=== PATIENT | female | born 1950 | race Caucasian/White ===

== ENCOUNTER → 2020-03-20 15:05 | Outpatient (CLI) | payer OTHER, SELFPAY ==
--- NOTE | ~2020-03-20 | MM_ITS ---
EXAMINATION: MM screening link BI w yessica HISTORY: Screening TECHNIQUE: Craniocaudal and mediolateral oblique 3-D tomosynthesis images were obtained and synthetic 2-D images were generated. CAD analysis was submitted and interpreted. COMPARISON: Comparison to multiple prior studies sequentially, with oldest reviewed study dated 12/04. BREAST PARENCHYMAL COMPOSITION: There are scattered areas of fibroglandular density. FINDINGS: There is no evidence of suspicious mass, calcification, or architectural distortion to sugg est malignancy in either breast. There has been no suspicious interval change. IMPRESSION: 1. No mammographic evidence of malignancy. 2. Recommend routine screening mammography in one year. BI-RADS Category 1: Negative Reviewed, dictated and finalized at location A.
== END ==
PROVIDERS: PCP Physician Assistant; Visit Provider Physician Assistant
DX: Z12.31 Encounter for screening mammogram for malignant neoplasm of breast (principal)
CPT/HCPCS: 77063; 77067

== ENCOUNTER → 2021-05-24 11:08 | Outpatient (CLI) | payer OTHER, SELFPAY ==
--- NOTE | ~2021-05-24 | XR_ITS ---
EXAMINATION: XR lumbar spine 2-3V DATE: 05/24/2021 11:33 INDICATION: Low back pain TECHNIQUE: Anteroposterior and lateral views of the lumbar spine, and cone-down lateral view of the l umbosacral junction were obtained. COMPARISON: None. FINDINGS: There is no fracture, dislocation, or subluxation. There is severe loss of intervertebral d isc space height at L4-5 and L5-S1. The vertebral body heights are maintained. Small degenerative ost eophytes project from the anterior endplates of multiple vertebral bodies. There is moderate facet os teoarthritis of the lower lumbar spine. IMPRESSION: 1. Severe lower lumbar spondylosis without acute findings. Reviewed, dictated and finalized at location B. [employer]
== END ==
PROVIDERS: PCP Physician Assistant; Visit Provider Podiatrist Foot & Ankle Surgery
DX: M47.27 Other spondylosis with radiculopathy, lumbosacral region (principal)
CPT/HCPCS: 72100

== ENCOUNTER → 2022-01-03 13:19 | Outpatient (CLI) | payer OTHER, SELFPAY ==
--- NOTE | ~2022-01-03 | MM_ITS ---
EXAMINATION: MM screening link BI w yessica HISTORY: Screening mammogram TECHNIQUE: Craniocaudal and mediolateral oblique 3-D tomosynthesis images were obtained and synthetic 2-D images were generated. CAD analysis was submitted and interpreted. COMPARISON: 03/20/2020, 02/12/2019, 01/20/2018 bilateral screening mammogram examinations BREAST PARENCHYMAL COMPOSITION: The breasts are heterogeneously dense, which may obscure small masses . FINDINGS: Benign-appearing stable left axillary tail and upper outer quadrant lymph nodes. Benign rig ht axillary tail stable lymph node. There is no evidence of suspicious mass, calcification, or bebeto ectural distortion to suggest malignancy in either breast. There has been no suspicious interval [place] [facility]. IMPRESSION: 1. No mammographic evidence of malignancy. 2. Recommend routine screening mammography in one year. BI-RADS Category 2: Benign finding(s). Reviewed, dictated and finalized at location A.
--- NOTE | ~2022-01-03 | DEXA_ITS ---
Bone Density Report Name: LINDSEY WISE Age: 71 Sex: Female Ethnicity: White Date of : 1950 Indication: postmenopausal; screening for osteoporosis; height loss; inflammatory bowel disease; hysterectomy; Referring Provider: IVÁN, DAKOTA Study: Bone densitometry was performed. Exam Date: January 03, 2022 Accession number: [id number] Bone Density: Region BMD T-score Z-score Classification AP Spine (L1-L4) 1.156 1.0 3.1 Normal Femoral Neck (Left) 0.779 -0.6 1.2 Normal Total Hip (Left) 0.886 -0.5 1.1 Normal Femoral Neck (Right) 0.720 -1.2 0.7 Osteopenia Total Hip (Right) 0.836 -0.9 0.7 Normal Total Hip Mean 0.861 -0.7 0.9 Normal World Health Organization criteria for BMD impression classify patients as: Normal (T-score at or above -1.0), Osteopenia (T-score between -1.0 and -2.5), or Osteoporosis (T-score at or below -2.5). 10-year Fracture Risk(1): Major Osteoporotic Fracture 8.7% Hip Fracture 1.0% Reported Risk Factors: [place] (), Neck BMD=0.720, BMI=31.8 (1) FRAX(R) Version 3.08. Fracture probability calculated for an untreated patient. Fracture probability may be lower if the patient has received treatment. Previous Exams: Region Exam Age BMD T-score BMD Change BMD Change Date g/cm2 vs Baseline vs Previous AP Spine(L1-L4) 01/03/2022 71 1.156 1.0 0.044 0.021 01/20/2018 67 1.135 0.8 0.023 0.087 01/03/2009 58 1.048 0.0 -0.063 -0.063 04/11/2003 52 1.112 0.6 Total Hip(Left) 01/03/2022 71 0.886 -0.5 -0.023 0.022 01/20/2018 67 0.865 -0.6 -0.045 0.026 01/03/2009 58 0.839 -0.8 -0.071 -0.071 04/11/2003 52 0.910 -0.3 Total Hip(Right) 01/03/2022 71 0.836 -0.9 0.000 0.005 01/20/2018 67 0.831 -0.9 -0.005 0.003 01/03/2009 58 0.827 -0.9 -0.009 -0.009 04/11/2003 52 0.836 -0.9 *Denotes significance at 95% confidence level, LSC for AP Spine = 0.022 g/cm2, LSC for Total Hip = 0.027 g/cm2 Clinical Information Provided by Patient: Has used the following medications: Vitamin D Has the following medical conditions: Inflammatory bowel diseases, Hysterectomy, ULCERATIVE COLITIS Patient maximum height was 68 Menopause Age: 51 No regular weight bearing exercise Drinks caffeinated beverages Onset of menses at age 17 Number of children 2
== END ==
PROVIDERS: PCP Physician Assistant; Visit Provider Physician Assistant
DX: Z12.31 Encounter for screening mammogram for malignant neoplasm of breast (principal); Z78.0 Asymptomatic menopausal state; M85.851 Other specified disorders of bone density and structure, right thigh
CPT/HCPCS: 77063; 77067; 77080

== ENCOUNTER → 2023-01-28 15:57 | Outpatient (CLI) | payer OTHER, SELFPAY ==
--- NOTE | ~2023-01-28 | MM_ITS ---
EXAMINATION: MM screening link BI w yessica HISTORY: Screening TECHNIQUE: Craniocaudal and mediolateral oblique 3-D tomosynthesis images were obtained and synthetic 2-D images were generated. CAD analysis was submitted and interpreted. COMPARISON: Comparison to multiple prior studies sequentially, with oldest reviewed study dated 12/24 2. BREAST PARENCHYMAL COMPOSITION: The breasts are heterogeneously dense, which may obscure small masses . FINDINGS: There is no evidence of suspicious mass, calcification, or architectural distortion to sugg est malignancy in either breast. There has been no suspicious interval change. IMPRESSION: 1. No mammographic evidence of malignancy. 2. Recommend routine screening mammography in one year. BI-RADS CATEGORY 1 - NEGATIVE Reviewed, dictated and finalized at location A.
== END ==
PROVIDERS: PCP Obstetrics & Gynecology Gynecology; Visit Provider Physician Assistant
DX: Z12.31 Encounter for screening mammogram for malignant neoplasm of breast (principal)
CPT/HCPCS: 77063; 77067

== ENCOUNTER 2024-02-06 10:53 | Outpatient (CLI) | payer OTHER, SELFPAY ==
--- NOTE | ~2024-02-06 | XR_ITS ---
XR lumbar spine 2-3V DATE: 02/06/2024 11:36 INDICATION: Lumbar spondylosis TECHNIQUE: AP, lateral, coned lateral lumbosacral views COMPARISON: 05/24/2021 lumbar spine FINDINGS: There is osteopenia. Normal alignment of the lower thoracic and lumbar spine. No fracture or bone destruction is evident. Included lower thoracic and lumbar pedicles are intact. There is moderate degenerative disc disease at L2-3 and severe degenerative disc disease at L4-5 and particularly L5-S1. There is prominent degenerative change at the lumbar apophyseal joints particularly in the mid and lo wer lumbar and lumbosacral area. Possible primary spinal stenosis is suggested in the lower lumbar area. This would be better evaluate d by CT examination if clinically indicated. Abdominal aortic, superior mesenteric and iliac arterial calcifications. There is a prominent amount of fecal material within the colon. IMPRESSION: Cannot exclude primary lumbar spinal stenosis Lumbar spondylosis including multilevel degenerative disc disease, moderate at L2-3, severe at L4-5 a nd L5-S1 Reviewed, dictated and finalized at location J. IMPRESSION: Cannot exclude primary lumbar spinal stenosis Lumbar spondylosis including multilevel degenerative disc disease, moderate at L2-3, severe at L4-5 and L5-S1
--- NOTE | ~2024-02-06 | MM_ITS ---
EXAMINATION: MM screening link BI w yessica HISTORY: Screening TECHNIQUE: Craniocaudal and mediolateral oblique 3-D tomosynthesis images were obtained and synthetic 2-D images were generated. CAD analysis was submitted and interpreted. COMPARISON: Comparison to multiple prior studies sequentially, with oldest reviewed study dated 01/19. BREAST PARENCHYMAL COMPOSITION: Not dense: There are scattered areas of fibroglandular density. FINDINGS: There is no evidence of suspicious mass, calcification, or architectural distortion to sugg est malignancy in either breast. There has been no suspicious interval change. IMPRESSION: 1. No mammographic evidence of malignancy. 2. Recommend routine screening mammography in one year. BI-RADS Category 1: Negative Reviewed, dictated and finalized at location B.
== END 2024-02-06 10:54 ==
PROVIDERS: PCP Physician Assistant; Visit Provider Physician Assistant
DX: Z12.31 Encounter for screening mammogram for malignant neoplasm of breast (principal); M47.816 Spondylosis without myelopathy or radiculopathy, lumbar region
CPT/HCPCS: 72100; 77063; 77067

== ENCOUNTER 2024-10-06 08:07 | Outpatient (CLI) | payer OTHER, SELFPAY ==
--- NOTE | ~2024-10-06 | CT_ITS ---
EXAMINATION: CT chest abdomen pelvis wo con DATE: 10/06/2024 08:27 INDICATION: Unintentional weight loss. TECHNIQUE: Computed tomography (CT) of the chest, abdomen, and pelvis was performed without intraveno us contrast. Automated exposure control and iterative reconstruction technique were employed. The dos e-length product was 836.50 mGy-cm. COMPARISON: None FINDINGS: CHEST CT: There is mild scarring at the lung apices. There is mild scarring in paraspinal right lower lobe. No pleural effusion. The heart size is normal. There are coronary artery calcifications. There is a trac e pericardial effusion. There are bridging endplate osteophytes at multiple levels in the spine, cons istent with diffuse idiopathic skeletal hyperostosis (DISH). There is severe upper thoracic spondylo sis. ABDOMEN/PELVIS CT: The liver, gallbladder, spleen, pancreas, adrenal glands, and kidneys are normal. There is no urolith iasis. There are no dilated loops of bowel. The appendix is normal. There are no pathologically enlar ged lymph nodes. There is no free intraperitoneal fluid. There is severe lower lumbar spondylosis. IMPRESSION: 1. No etiology for weight loss. Reviewed, dictated and finalized at location A.
== END 2024-10-06 08:08 | disposition home or self-care (01) ==
LOC: MICIMG 08:08
PROVIDERS: PCP Physician Assistant; Visit Provider Physician Assistant
DX: R63.4 Abnormal weight loss (principal)
CPT/HCPCS: 71250; 74176

== ENCOUNTER 2025-02-11 09:44 | Outpatient (CLI) | payer OTHER, SELFPAY ==
--- NOTE | ~2025-02-11 | MM_ITS ---
EXAMINATION: MM screening link BI w yessica HISTORY: Screening TECHNIQUE: Craniocaudal and mediolateral oblique 3-D tomosynthesis images were obtained and synthetic 2-D images were generated. CAD analysis was submitted and interpreted. COMPARISON: Comparison to multiple prior studies sequentially, with oldest reviewed study dated 01/20. BREAST PARENCHYMAL COMPOSITION: There are scattered areas of fibroglandular density. FINDINGS: There is no evidence of suspicious mass, calcification, or architectural distortion to sug gest malignancy in either breast. IMPRESSION: 1. No mammographic evidence of malignancy. 2. Recommend routine screening mammography in one year. BI-RADS Category 1: Negative Reviewed, dictated and finalized at location B.
== END 2025-02-11 09:45 | disposition home or self-care (01) ==
LOC: MICIMG 09:46
PROVIDERS: PCP Physician Assistant; Visit Provider Physician Assistant
DX: Z12.31 Encounter for screening mammogram for malignant neoplasm of breast (principal)
CPT/HCPCS: 77063; 77067